=== PATIENT | female | born 1985 | race Caucasian/White ===

== ENCOUNTER 2017-01-11 12:58 | Emergency (ER) | payer OTHER ==
[2017-01-11 13:02] VITALS: BP 117/72
[2017-01-11] MEDS ORDERED: DEXAMETHASONE 10 MG/ML VIAL PO STA (13:13)
[2017-01-11] MEDS ORDERED: IBUPROFEN 800 MG TABLET PO STA (13:16)
--- NOTE | 2017-01-11 13:18 | ED Physician Documentation ---
PD HPI URI - Stated complaint Stated Complaint: SORE THROAT - Chief complaint Chief Complaint: Heent - History obtained from History obtained from: Patient - History of Present Illness Timing - onset: How many days ago (3) Timing duration: Days (3) Timing details: Gradual onset Pain level max: 7 Pain level now: 5 Associated symptoms: Fever, Sore throat, Swollen nodes. No: Nasal congestion, Rhinorrhea, Dry cough Contributing factors: No: Sick contact, Travel Improves by: Rest Worsened by: Other (swallowing) Similar symptoms before: Has not had sx before Recently seen: Not recently seen Review of Systems GI: denies: Abdominal Pain, Vomiting, Diarrhea Skin: denies: Rash Musculoskeletal: denies: Neck pain, Back pain Neurologic: denies: Headache PD PAST MEDICAL HISTORY - Past Medical History Past Medical History: No - Past Surgical History Past Surgical History: No - Present Medications Home Medications: Ambulatory Orders Medication Instructions Recorded Confirmed Fluticasone [Flonase] 01/11/17 Ibuprofen [Motrin] 800 mg PO Q8H PRN #30 tablet 01/11/17 Prednisone 40 mg PO DAILY #10 tablet 01/11/17 - Allergies Allergies/Adverse Reactions: Allergies Allergy/AdvReac Type Severity Reaction Status Date / Time No Known Drug Allergies Allergy Verified 01/11/17 13:01 - Social History Does the pt smoke?: No Smoking Status: Never smoker Does the pt drink ETOH?: No Does the pt have substance abuse?: No - Immunizations Immunizations are current?: Yes PD ED PE NORMAL - Vitals Vital signs reviewed: Yes - General General: Alert and oriented X 3, No acute distress, Well developed/nourished - HEENT HEENT: PERRL, Ears normal, Moist mucous membranes, Other (Moderate posterior oropharyngeal erythema with tonsillar exudates. Uvula midline. Normal phonation. No trismus.) - Neck Neck: Supple, no meningeal sign - Cardiac Cardiac: RRR, Strong equal pulses - Respiratory Respiratory: No respiratory distress, Clear bilaterally - Abdomen Abdomen: Soft, Non tender - Derm Derm: Warm and dry, No rash - Neuro Neuro: Alert and oriented X 3 - Psych Psych: Normal mood, Normal affect Results - Vitals Vitals: Vital Signs - 24 hr 01/11/17 13:00 Temperature 36.9 C Heart Rate 82 Respiratory 17 Rate Blood Pressure 117/72 O2 Saturation 99 Oxygen O2 Source Room air - Labs Labs: Laboratory Tests 01/11/17 13:10 Group A Strep Rapid Negative PD MEDICAL DECISION MAKING - ED course Complexity details: reviewed results, considered differential, d/w patient ED course: Patient is a 31-year-old female who presents to the emergency department with apparent viral pharyngitis. No evidence of peritonsillar abscess, retropharyngeal abscess. No trismus. Patient is well-appearing, nontoxic and tolerating p.o. without difficulty. Will place on steroids and nonsteroidal anti-inflammatory medications for home. Patient counseled regarding signs and symptoms for which I believe and urgent re-evaluation would be necessary. Patient with good understanding of and agreement to plan and is comfortable going home at this time This document was made in part using voice recognition software. While efforts are made to proofread this document, sound alike and grammatical errors may occur. Departure - Departure Disposition: 01 Home, Self Care Clinical Impression: Viral pharyngitis Condition: Good Instructions: ED Pharyngitis Viral Follow-Up: LAURA BENTLEY [Primary Care Provider] - Within 1 week Prescriptions: Ibuprofen [Motrin] 800 mg PO Q8H PRN #30 tablet PRN Reason: PAIN &/OR FEVER Prednisone 40 mg PO DAILY #10 tablet Comments: Drink plenty of fluids. Return if you worsen. Your rapid strep is negative, but a culture was sent and you will be called if it turns positive. Discharge Date/Time: 01/11/17 14:09
[2017-01-11] MEDS ORDERED: IBUPROFEN 800 MG TABLET PO ONE (13:26)
[2017-01-11] MEDS ORDERED: CHERRY SYRUP 10 ML UDC PO ONE (13:27)
[2017-01-11] MEDS ORDERED: DEXAMETHASONE 10 MG/ML VIAL ONE (13:27)
[2017-01-11 13:41] LABS: RAPID STREP SCREEN REAGENT QC YELLOW (YELLOW)
== END 2017-01-11 14:09 | disposition home or self-care (01) ==
LOC: ED 12:58
DX: J02.8 Acute pharyngitis due to other specified organisms (principal)
CPT/HCPCS: 87070; 87430; 99282; 99283; A9270

== ENCOUNTER 2020-05-15 08:33 | Emergency (ER) | payer OTHER ==
[2020-05-15 09:07] VITALS: BP 115/82
--- NOTE | 2020-05-15 09:14 | ED Physician Documentation ---
PD HPI CHEST PAIN - Stated complaint Stated Complaint: RT RIB PX - Chief complaint Chief Complaint: Resp - History obtained from History obtained from: Patient - History of Present Illness Timing - onset: Yesterday Timing - onset during: Exertion (she was in martial arts class and got knee forcefully to right lower ribs, with pain there. Had been having some pain in rib with activity for couple of weeks, but abruptly worse with injury last evening.) Timing - duration: Days (1) Timing - details: Abrupt onset Quality: Sharp, Stabbing, Pain Location: Right chest (lower ribs in anterior axillary line.) Radiation: No: Neck, Back Worsened by: Inspiration, Movement Associated symptoms: No: Shortness of air, Nausea, Feeling faint / dizzy Review of Systems Constitutional: denies: Fever, Chills Nose: denies: Rhinorrhea / runny nose, Congestion Throat: denies: Sore throat Respiratory: denies: Cough GI: denies: Abdominal Pain, Nausea, Vomiting Skin: denies: Abrasion (s), Laceration (s) PD PAST MEDICAL HISTORY - Past Medical History Past Medical History: No Cardiovascular: None Respiratory: None - Past Surgical History Past Surgical History: No - Present Medications Home Medications: Ambulatory Orders Medication Instructions Recorded Confirmed Fluticasone [Flonase] 01/11/17 Ibuprofen [Motrin] 800 mg PO Q8H PRN #30 tablet 01/11/17 predniSONE [Prednisone] 40 mg PO DAILY #10 tablet 01/11/17 - Allergies Allergies/Adverse Reactions: Allergies Allergy/AdvReac Type Severity Reaction Status Date / Time No Known Drug Allergies Allergy Verified 05/15/20 08:52 - Social History Does the pt smoke?: No Smoking Status: Never smoker Does the pt drink ETOH?: No Does the pt have substance abuse?: No - Immunizations Immunizations are current?: Yes PD ED PE NORMAL - Vitals Vital signs reviewed: Yes - General General: Alert and oriented X 3, Well developed/nourished - Cardiac Cardiac: RRR, No murmur - Respiratory Respiratory: No respiratory distress, Clear bilaterally, Other (right anterolateral ribs approx 8-10 with tenderness but no crepitance nor obvious deformity. ) - Abdomen Abdomen: Soft, Non tender Results - Vitals Vitals: Vital Signs - 24 hr 05/15/20 08:47 Temperature 37.0 C Heart Rate 79 Respiratory 18 Rate Blood Pressure 115/82 H O2 Saturation 100 Oxygen O2 Source Room air - Rads (name of study) right ribs with CXR Radiology: Prelim report reviewed (lungs appear normal. No visible rib fractures. ), See rad report PD MEDICAL DECISION MAKING - ED course Complexity details: reviewed results, considered differential, d/w patient Departure - Departure Disposition: 01 Home, Self Care Clinical Impression: Chest wall contusion Qualifiers: Encounter type: initial encounter Laterality: right Qualified Code(s): S20.211A - Contusion of right front wall of thorax, initial encounter Rib sprain Qualifiers: Encounter type: initial encounter Qualified Code(s): S23.41XA - Sprain of ribs, initial encounter Condition: Stable Record reviewed to determine appropriate education?: Yes Instructions: ED Contusion Rib Follow-Up: LAURA BENTLEY [Primary Care Provider] - Comments: Suggest some regular anti-inflammatories such as ibuprofen or naproxen 2 to 3 tablets 3 times a day for the next several days to week. Add Tylenol if needed for pains. Activity as tolerated. Your x-ray appears normal without any signs of rib fracture or lung injury. You can certainly be having some strain or injury of the muscles around the rib or the cartilage connection of the rib. These can take time for gradual healing. healthcare prof is reasonable. Anti-inflammatories are good as well. Discharge Date/Time: 05/15/20 10:38
[2020-05-15] MEDS ORDERED: ACETAMINOPHEN 325 MG TABLET PO STA (09:35)
[2020-05-15] MEDS ORDERED: IBUPROFEN 600 MG TABLET PO STA (09:35)
--- NOTE | 2020-05-15 10:08 | XRAY Report ---
PROCEDURE: Ribs w/PA Chest RT INDICATIONS: right lateral lower ribs injury yesterday TECHNIQUE: 4 views of the right ribs were acquired, along with a single view chest. COMPARISON: None FINDINGS: Surgical changes and devices: None. Bones and chest wall: No fractures or dislocations. No suspicious bony lesions. Overlying soft tis sues appear unremarkable. Lungs and pleura: No pleural effusions or pneumothorax. Lungs appear clear. Mediastinum: Mediastinal contours appear normal. Heart size is normal. IMPRESSION: 1. No displaced rib fracture. No suspicious osseous lesions. 2. No acute cardiopulmonary disease process. Reviewed by: iMchelle Henson MD, PhD on 05/15/2020 10:06 AM PDT Approved by: Michelle Henson MD, PhD on 05/15/2020 10:06 AM PDT Station ID: [id number]
== END 2020-05-15 10:38 | disposition home or self-care (01) ==
LOC: ED 08:33
DX: S20.211A Contusion of right front wall of thorax, initial encounter (principal); S23.41XA Sprain of ribs, initial encounter; W50.0XXA Accidental hit or strike by another person, initial encounter; Y93.75 Activity, martial arts; Y92.89 Other specified places as the place of occurrence of the external cause
CPT/HCPCS: 71101; 99283; A9270

== ENCOUNTER 2020-07-23 12:32 | Outpatient (CLI) | payer OTHER ==
--- NOTE | 2020-07-23 16:47 | MRI Report ---
PROCEDURE: Knee LT W/O INDICATIONS: LEFT KNEE PAIN TECHNIQUE: Noncontrast sagittal PD fast spin echo and T2 fast spin echo with fat saturation, sagittal 3-D spoile d GE with fat saturation; coronal T1 spin echo and PD fast spin echo with fat saturation, and axial P D fast spin echo with fat saturation through the knee. COMPARISON: None. FINDINGS: Image quality: Excellent. Menisci: The medial and lateral menisci are intact. There is no meniscal extrusion. Cruciate ligaments: The anterior and posterior cruciate ligaments appear intact. Medial structures: There is mild chronic thickening of proximal medial collateral ligament, compatib le with a remote prior low-grade sprain. The semimembranosus tendon insertions appear intact. Visua lized portions of the pes anserinus tendons appear normal. Lateral structures: Mild edema is seen at the anterior insertion of the conjoint tendon, compatible with low-grade partial tearing. Mild edema is also seen at the fibular attachment. The remaining port ions of the lateral collateral ligament and distal biceps femoris tendons are intact. The popliteus tendon appears intact. Iliotibial band appears normal. Anterior structures: There is mild proximal patellar tendinosis. The distal quadriceps tendon is inta ct. Patellar alignment is normal. No femoral trochlear dysplasia or ventral trochlear prominence. M ild scarring is seen in Hoffa's fat pad. Bones and cartilage: Mild edema is seen at the posterior medial aspect of the medial femoral condyle that may be related to a direct contusion. The cartilage of the medial and lateral femorotibial laura rtments, as well as the patellofemoral compartment, appears normal in thickness. Joint space and soft tissues: There is a small joint effusion. There is no medial popliteal cyst. IMPRESSION: 1. Low-grade partial thickness tear of the distal lateral collateral ligament/conjoint tendon at its insertion onto the fibula. 2. Mild trabecular bone injury at the posterior medial aspect of the medial femoral condyle is suspi cious for a direct contusion. 3. Chronic low-grade sprain of the medial collateral ligament. 4. Mild proximal patellar tendinosis. 5. Small joint effusion. Reviewed by: Trey Kiser MD on 07/23/2020 4:46 PM PST Approved by: Trey Kiser MD on 07/23/2020 4:46 PM PST Station ID: [id number]
== END 2020-07-23 12:33 | disposition home or self-care (01) ==
LOC: DI 12:32
PROVIDERS: ATTEND Student in an Organized Health Care Education/Training Program
DX: S83.422A Sprain of lateral collateral ligament of left knee, initial encounter (principal); S83.412A Sprain of medial collateral ligament of left knee, initial encounter; M76.52 Patellar tendinitis, left knee; M25.462 Effusion, left knee

== ENCOUNTER 2021-10-15 14:57 | Emergency (ER) | payer OTHER ==
[2021-10-15] MEDS ORDERED: DEXAMETHASONE 10 MG/ML VIAL PO STA (16:19)
[2021-10-15] MEDS ORDERED: CHERRY SYRUP 10 ML UDC PO ONE (16:19)
--- NOTE | 2021-10-15 16:19 | ED Physician Documentation ---
History of Present Illness - Stated complaint Stated Complaint: THROAT/EAR PAIN/CHILLS - Chief complaint Chief Complaint: Heent - Additonal information Additional information: 36-year-old female presents emergency department for evaluation of 3 days right- sided throat pain difficulty swallowing and fevers up to 100.5. She is also endorsing right ear pain. Tender anterior cervical lymphadenopathy with exudate. No dysphonia. Dry cough. No sick contacts. Fully vaccinated for COVID-19. Review of Systems Constitutional: reports: Fever Throat: reports: Sore throat, Swollen tonsils Cardiac: reports: Reviewed and negative Respiratory: reports: Reviewed and negative GI: reports: Reviewed and negative : reports: Reviewed and negative Skin: reports: Reviewed and negative PD PAST MEDICAL HISTORY - Past Medical History Cardiovascular: None Respiratory: None - Past Surgical History Past Surgical History: No - Present Medications Home Medications: Ambulatory Orders Medication Instructions Recorded Confirmed Fluticasone [Flonase] 01/11/17 Ibuprofen [Motrin] 800 mg PO Q8H PRN #30 tablet 01/11/17 predniSONE [Prednisone] 40 mg PO DAILY #10 tablet 01/11/17 - Allergies Allergies/Adverse Reactions: Allergies Allergy/AdvReac Type Severity Reaction Status Date / Time No Known Drug Allergies Allergy Verified 10/15/21 15:09 - Social History Does the pt smoke?: No Smoking Status: Never smoker Does the pt drink ETOH?: No Does the pt have substance abuse?: No - Immunizations Immunizations are current?: Yes PD ED PE NORMAL - General General: Alert and oriented X 3, No acute distress - HEENT HEENT: Atraumatic, Other (Posterior oropharynx erythema with right tonsillar exudate. Uvula is midline. No soft palate asymmetry or swelling. Tender ant erior cervical lymphadenopathy) - Neck Neck: No: No adenopathy - Cardiac Cardiac: RRR, No murmur - Respiratory Respiratory: No respiratory distress, Clear bilaterally - Abdomen Abdomen: Normal bowel sounds, Soft, Non tender Results - Vitals Vitals: Vital Signs - 24 hr 10/15/21 15:09 Temperature 36.5 C Heart Rate 88 Respiratory 18 Rate Blood Pressure 137/83 H O2 Saturation 99 Oxygen O2 Source Room air - Labs Labs: Laboratory Tests 10/15/21 16:16 Group A Strep Rapid Negative PD MEDICAL DECISION MAKING - ED course Complexity details: reviewed results, re-evaluated patient, considered differential, d/w patient ED course: 36-year-old female presents emergency department for evaluation of acute sore throat tonsillar exudate fever up to 100.5. She does have tender anterior cervical lymphadenopathy and a cough. Rapid strep is negative. Covid is pending. Patient given Decadron here in the emergency department. Discussed risk benefit of antibiotics now versus waiting for the culture and she elects to wait for the culture. Advised Motrin and Tylenol plus warm salt water gargles. Clinically no evidence of RPA or CARPET SEWER. Emergent return precautions discussed for worsening symptoms. Departure - Departure Disposition: 01 Home, Self Care Clinical Impression: Pharyngitis Qualifiers: Pharyngitis/tonsillitis etiology: unspecified etiology Qualified Code(s): J02.9 - Acute pharyngitis, unspecified Condition: Stable Record reviewed to determine appropriate education?: Yes Instructions: ED Strep Pharyngitis Poss Comments: Dionna was seen today in the emergency department for a few days of a sore throat especially on the right side with some patches on your tonsils low-grade fever and tender neck lymph nodes. Your rapid strep is negative. Often viral pharyngitis can cause similar symptoms. We are sending your Swab for culture. We should have the results in the next 24 to 36 hours. If the results are positive we will notify you and send a prescription to your pharmacy [facility]. You were given a dose of Decadron which is a steroid today in the ER. It will help with pain and swelling over the next 12 to 72 hours. I recommend you take 600 mg of ibuprofen with food and gargle with warm salt water. In general most pharyngitis symptoms begin to improve over 48 to 72 hours. If at any point you cannot turn your neck, swallow normally or have a high-pitched voice then please return immediately to the ER for second evaluation.
[2021-10-15 16:51] LABS: RAPID STREP SCREEN Negative (Negative)
[2021-10-15 17:10] VITALS: BP 130/80
== END 2021-10-15 17:10 | disposition home or self-care (01) ==
LOC: ED 14:57
DX: J02.9 Acute pharyngitis, unspecified (principal); Z20.822 Contact with and (suspected) exposure to COVID-19
CPT/HCPCS: 87070; 87430; 87635; 99282; 99283; A9270

== ENCOUNTER 2021-12-24 13:49 | Emergency (ER) | payer OTHER ==
[2021-12-24 13:58] VITALS: BP 139/83
[2021-12-24] MEDS ORDERED: IBUPROFEN 600 MG TABLET PO STA (14:02)
--- NOTE | 2021-12-24 14:07 | ED Physician Documentation ---
History of Present Illness - Stated complaint Stated Complaint: RIGHT THUMB PX - Chief complaint Chief Complaint: Ext Problem - Additonal information Additional information: 36-year-old female presents emergency department for evaluation of about 2 months right wrist pain. She has felt pain within the joint itself but has not had any fevers or swelling. She does not remember any inciting traumas. She does describe her self as double-jointed. About 1 week ago she thought that she would try and exercise her wrist and did planks on her fists while at the gym. Since then she has had increased pain especially in the thenar eminence of the thumb. She took 200 mg of Motrin without relief of symptoms. Review of Systems Constitutional: reports: Reviewed and negative Throat: reports: Reviewed and negative Cardiac: reports: Reviewed and negative Skin: reports: Rash Musculoskeletal: reports: Joint pain PD PAST MEDICAL HISTORY - Past Medical History Cardiovascular: None Respiratory: None - Past Surgical History Past Surgical History: No - Present Medications Home Medications: Ambulatory Orders Medication Instructions Recorded Confirmed Fluticasone [Flonase] 01/11/17 Ibuprofen [Motrin] 800 mg PO Q8H PRN #30 tablet 01/11/17 predniSONE [Prednisone] 40 mg PO DAILY #10 tablet 01/11/17 - Allergies Allergies/Adverse Reactions: Allergies Allergy/AdvReac Type Severity Reaction Status Date / Time No Known Drug Allergies Allergy Verified 12/24/21 13:58 - Social History Does the pt smoke?: No Smoking Status: Never smoker Does the pt drink ETOH?: No Does the pt have substance abuse?: No - Immunizations Immunizations are current?: Yes PD ED PE EXPANDED - General General: Alert, No acute distress - Extremities Extremities: Right wrist (normal flexion/extension though painful. tenderness dorsum of wrist. negative snuff box. negative phalens. 4/5 grasp. normal sensation) Results - Vitals Vitals: Vital Signs - 24 hr 12/24/21 13:53 Temperature 36.7 C Heart Rate 67 Respiratory 14 Rate Blood Pressure 139/83 H O2 Saturation 97 Oxygen O2 Source Room air - Rads (name of study) right wrist Radiology: EMP read indepedently (no acute fracture or dislocation) PD MEDICAL DECISION MAKING - ED course Complexity details: reviewed results, d/w patient ED course: right wrist pain for one month, worse for one week after planking at the gym. no obvious fx or dislocation on xray. reassuring exam withotu findings of infection. ? sprain. placed in abducted velcro splint. f/u with pcp. return precautions discussed Departure - Departure Disposition: 01 Home, Self Care Clinical Impression: Pain of right thumb Condition: Stable Record reviewed to determine appropriate education?: Yes Instructions: ED Sprain Wrist Comments: Dionna the cause of the pain in your right thumb and wrist is not clear to us at this time though you may simply have a sprain. My hope is that by wearing that thumb splint for as often as you can for the next 5 to 6 days you will allow the tissues to begin to heal. I recommend that you take 600 mg of ibuprofen with food 2-3 times a day for the next week. If immobilizing the thumb, using the ibuprofen does not make the pain better over the next week then you should see your primary care doctor to obtain referral. Return to the ER if you develop any fevers, have redness milky drainage or any concerns of infection.
--- NOTE | 2021-12-24 14:45 | XRAY Report ---
PROCEDURE: Wrist 3 View RT INDICATIONS: pain 2 months TECHNIQUE: 3 views of the wrist were acquired. COMPARISON: None. FINDINGS: Bones: No fractures or dislocations. No suspicious bony lesions. Soft tissues: No suspicious soft tissue calcifications. IMPRESSION: No fracture. No acute osseous lesion. If symptoms and/or clinical concern for pathology persists, fur ther assessment with repeat plain film radiographs (7-10 days) or advanced imaging (CT, MR, bone scan ) should be considered. Reviewed by: Michelle Henson MD, PhD on 12/24/2021 2:44 PM PDT Approved by: Michelle Henson MD, PhD on 12/24/2021 2:44 PM PDT Station ID: [id number]
== END 2021-12-24 14:50 | disposition home or self-care (01) ==
LOC: ED 13:49
DX: M79.644 Pain in right finger(s) (principal)
CPT/HCPCS: 73110; 99282; 99283; A9270

== ENCOUNTER 2023-04-02 12:03 | Emergency (ER) | payer OTHER ==
[2023-04-02] MEDS ORDERED: KETOROLAC 60 MG/2 ML VIAL IM STA (14:03)
[2023-04-02] MEDS ORDERED: methocarbamoL 500 MG TABLET PO STA (14:03)
[2023-04-02] MEDS ORDERED: DEXAMETHASONE 10 MG/ML VIAL PO STA (14:03)
[2023-04-02] MEDS ORDERED: CHERRY SYRUP 10 ML UDC PO ONE (14:03)
[2023-04-02] MEDS ORDERED: oxyCODONE 5 MG TABLET PO STA (14:03)
--- NOTE | 2023-04-02 14:04 | ED Physician Documentation ---
History of Present Illness - Stated complaint Stated Complaint: NECK PX/STIFFNESS - Chief complaint Chief Complaint: General - History obtained from History obtained from: Patient - History of Present Illness Timing: How many days ago (6) Pain level max: 7 Pain level now: 6 - Additonal information Additional information: Patient is a 38-year-old female who presents to the emergency department complaining of right-sided neck pain that radiates down towards the shoulder. Occasionally has numbness and tingling down the right arm. Worse with movement, better with rest. She states she has had issues with her neck for many years. She states that this current and spasm started after working out 6 days ago. She took some old leftover Flexeril but this did not help the pain. She states it has progressively worsened since that time, now having difficulty turning her head. Patient is not , trying to become or breast-feeding. Review of Systems Constitutional: denies: Fever, Chills Nose: denies: Rhinorrhea / runny nose Cardiac: denies: Chest pain / pressure, Palpitations Respiratory: denies: Dyspnea, Cough GI: denies: Nausea, Vomiting, Diarrhea : denies: Now EGA Skin: denies: Rash Musculoskeletal: denies: Back pain Neurologic: denies: Headache, Head injury PD PAST MEDICAL HISTORY - Past Medical History Cardiovascular: None Respiratory: None - Past Surgical History Past Surgical History: No - Present Medications Home Medications: Ambulatory Orders Medication Instructions Recorded Confirmed HYDROcod/ACETAM 5/325 [[place] 5/325] 1 - 2 ea PO Q6H PRN #14 tablet 04/02/23 Ibuprofen [Motrin] 800 mg PO Q8H PRN #30 tablet 04/02/23 methocarbamoL [Robaxin] 500 mg PO Q6H PRN #20 tablet 04/02/23 predniSONE [Deltasone] 10 mg PO [id number] #42 tab 04/02/23 - Allergies Allergies/Adverse Reactions: Allergies Allergy/AdvReac Type Severity Reaction Status Date / Time No Known Drug Allergies Allergy Verified 12/24/21 13:58 - Social History Does the pt smoke?: No Smoking Status: Never smoker Does the pt drink ETOH?: No Does the pt have substance abuse?: No - Immunizations Immunizations are current?: Yes PD ED PE NORMAL - Vitals Vital signs reviewed: Yes - General General: Alert and oriented X 3, No acute distress - HEENT HEENT: PERRL, Moist mucous membranes - Neck Neck: No bony TTP, No JVD, No bruit, Other (Paraspinal muscle spasm right side paracervical. Neurovascular intact. No midline tenderness. No step-off or deformity.) - Cardiac Cardiac: RRR, Strong equal pulses - Respiratory Respiratory: No respiratory distress, Clear bilaterally - Abdomen Abdomen: Soft, Non tender, Non distended - Derm Derm: Warm and dry - Extremities Extremities: No edema, Other (Limited range of motion of the right shoulder secondary to pain. No deformity. No swelling. 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 We will place on pain medications, muscle relaxants and steroids for home. Recommend she follow-up with her PCP for likely MRI or physical therapy once the initial spasm has resolved. This been ongoing issue for several years. No indication for emergent imaging. No focal neurological deficits. No indication of dislocations or fractures. Patient counseled regarding signs and symptoms for which I believe and urgent re-evaluation would be necessary. Patient with good understanding of and agreement to plan and is comfortable going home at this time This document was made in part using voice recognition software. While efforts are made to proofread this document, sound alike and grammatical errors may occur. Departure - Departure Disposition: Home, Self Care Clinical Impression: Neck muscle spasm Condition: Good Instructions: ED Spasm Neck No Injury Follow-Up: your,doctor in 1 week [Other] Prescriptions: predniSONE [Deltasone] 10 mg PO [id number] #42 tab Ibuprofen [Motrin] 800 mg PO Q8H PRN #30 tablet PRN Reason: PAIN &/OR FEVER HYDROcod/ACETAM 5/325 [[place] 5/325] 1 - 2 ea PO Q6H PRN #14 tablet PRN Reason: Pain methocarbamoL [Robaxin] 500 mg PO Q6H PRN #20 tablet PRN Reason: muscle spasm Comments: Your prescriptions were [facility] to [facility] in [place]. You appear to have a neck muscle spasm. Please continue to gently move your neck at home as this will help with the spasming. Use the medications as prescribed. Please follow- up with your doctor for further care. Please return if you worsen. I am prescribing a short course of narcotic pain medication for you. These are potentially dangerous and addictive medications that should be used carefully. These medications may constipate you. Take an sarn-[id number]-mhedemm stool softener (docusate) twice daily with plenty of water while taking these medications. If you go 24 hours without a bowel movement, take [id number] miralax, per package instructions. Do not drink or drive while taking these medications. If you received narcotic or sedating medications while in the emergency department, do not drive for 24 hours. Store this medication in a safe, secure place and out of reach of children. It is a violation of federal law to give or sell this medication to another person or to use in a manner other than prescribed. The ED will not refill narcotic prescriptions, including prescriptions lost or stolen. To dispose of unwanted medications: 1. [facility] at [address] in [place] has a medication drop box. They accept prescription medications (in pill form) Monday through Monday 9:00 a.m. to 5:00 p.m. 2. The [facility] accepts prescription medications (in pill form only) for disposal year round. Call for more information. 3. Contact the [facility] for the next [facility] sponsored prescription drug collection event. , [phone], or [phone];
[2023-04-02 14:32] VITALS: BP 120/72; O2SAT 100
== END 2023-04-02 14:25 | disposition home or self-care (01) ==
LOC: ED 12:03
DX: M62.838 Other muscle spasm (principal)
CPT/HCPCS: 96372; 99282; 99283; A9270

== ENCOUNTER 2024-03-04 09:34 | Outpatient (CLI) | payer OTHER ==
--- NOTE | 2024-03-06 12:20 | MRI Report ---
PROCEDURE: Lumbar Spine WO INDICATIONS: LUMBAGO TECHNIQUE: Multiplanar multisequential MRI images of the lumbar spine were obtained without intraven ous contrast. COMPARISON: None. FINDINGS: Alignment and Curvature: There is normal bony alignment. Bone Marrow: Marrow is of normal overall signal. No acute vertebral body compression fractures. No sacral fractures. Spinal Cord: Conus medullaris terminates at the L1 level. Visualized cord demonstrates normal signa l and size. Paraspinal Soft Tissues: Unremarkable perivertebral soft tissues. T12-L1: Normal in appearance. L1-L2: Normal in appearance. L2-L3: Normal in appearance. L3-L4: Normal in appearance. L4-L5: Normal in appearance. L5-S1: Right subarticular disc protrusion completely effaces the right lateral recess and compresse s the descending nerve root. No central or foraminal stenosis IMPRESSION: Right subarticular disc protrusion at L5-S1 compresses the descending nerve root in the right lateral recess Reviewed by: Monico Harris MD on 03/06/2024 11:19 AM BREE Approved by: Monico Harris MD on 03/06/2024 11:19 AM BREE Station ID: [id number]
== END 2024-03-04 09:35 | disposition home or self-care (01) ==
LOC: DI 09:34
PROVIDERS: ATTEND Nurse Practitioner Family
DX: M51.17 Intervertebral disc disorders with radiculopathy, lumbosacral region (principal)